=== PATIENT | female | born 1975 | race Caucasian/White ===

== ENCOUNTER → 2017-08-24 | Outpatient (CLI) | payer OTHER ==
--- NOTE | 2017-08-24 17:29 | US ---
EXAMINATION TYPE: US pelvic complete DATE OF EXAM: 08/24/2017 COMPARISON: NONE CLINICAL HISTORY: N94.10 painful intercourse. bruising sensation while during intercourse, no abnorm al bleeding, 2 c-sections TECHNIQUE: TV Date of LMP: unknown except for July 2017 EXAM MEASUREMENTS: Uterus: 9.7 x 4.8 x 4.7 cm Endometrial Stripe: 1.0 cm Right Ovary: 2.4 x 1.4 x 1.3 cm Left Ovary: 1.8 x 1.3 x 1.2 cm 1. Uterus: Anteverted nabothian cyst within cervix 2. Endometrium: wnl 3. Right Ovary: wnl 4. Left Ovary: wnl 5. Bilateral Adnexa: wnl 6. Posterior cul-de-sac: wnl IMPRESSION: There is incidental small cervical cyst. Otherwise negative transvaginal pelvic sonogram.
== END | disposition home or self-care (01) ==
LOC: RADUSWWP 16:19
PROVIDERS: ATTEND Family Medicine
DX: N88.8 Other specified noninflammatory disorders of cervix uteri (principal)
CPT/HCPCS: 76830